=== PATIENT | male | born 1960 | race Caucasian/White ===

== ENCOUNTER 2017-08-11 18:01 | Inpatient (IN) | payer OTHER ==
[~2017-08-11] VITALS: Ht 182.9 cm; Wt 90.7 kg
--- NOTE | ~2017-08-11 | HC ---
[facility] [place] [address] CONSULTATION Name: JAYASHREE AMADOR JR Room #: 434-P [facility] IN .R.#: [id number] Admission: 08/11/17 Attend Phys: Frederick Velazquez MD Discharge: 08/13/17 Date of : 56 Report #: [id number] THIS REPORT FOR: //name// CC: Frederick Taylor MD DATE OF SERVICE: 08/12/2017 HISTORY OF PRESENT ILLNESS: The patient is a 56-year-old male with a history of ulcerative colitis, reportedly diagnosed in 1999. He is followed by Dr. Nirmal Taylor. He takes Lialda on a daily basis. Began on Tuesday, having generalized aches and pains, chills, no fevers. He does have nausea, but this is chronic. He has a history of gastroparesis. He denies any emesis. His weight has been fairly stable. He denies any significant diarrhea, or blood in the stools, but he has noticed increased mucus. He was complaining of chest pain, back pain, abdominal pain, was seen by his primary physician last week. He tested negative for the flu, but was treated prophylactically with Tamiflu. Because of his ongoing symptoms, he went to the Emergency Room for further evaluation. A CT scan of his abdomen and pelvis were performed yesterday, which showed mild circumferential mural thickening involving the descending and sigmoid colon with scattered colonic diverticulosis, no evidence of diverticulitis. This could possibly represent mild descending and sigmoid colitis. The patient's last colonoscopy was in [address] Jaden Alvarez in which left-sided diverticulosis was noted, but no active ulcerative colitis. He has been started on antibiotics empirically. He denies any shortness of breath at this time. PAST MEDICAL HISTORY: Ulcerative colitis diagnosed in 1999, history of gastroesophageal reflux disease, gastroparesis, sleep apnea, asthma, hypertension, coronary artery disease status post CABG, secondary polycythemia, diverticulosis, history of renal stone. MEDICATIONS ON ADMISSION: Aciphex, Lialda, he is taking 2 per day, Zantac, Zithromax, Valtrex, Flonase, Cymbalta, Jennifer, Toprol, alprazolam, fentanyl patch, Ashford p.r.n., Bentyl, Soma, Ambien, Tigan, Zocor, Zegerid, Spiriva, Singulair, testosterone, Diflucan, Advair. ALLERGIES: ELAVIL, NEURONTIN, REGLAN, COMPAZINE, LYRICA. REVIEW OF SYSTEMS: As per HPI. FAMILY HISTORY: Negative for colon cancer. SOCIAL HISTORY: Quit smoking approximately a year ago. Denies any alcohol use. [address] [address] CONSULTATION Name: JAYASHREE AMADOR Room #: 434-P [facility] IN M.R.#: [id number] Admission: 08/11/17 Attend Phys: Frederick Velazquez MD Discharge: 08/13/17 Date of : 56 Report #: [id number] PHYSICAL EXAMINATION: VITAL SIGNS: Temperature is 98.0, pulse 83, blood pressure 145/95, respiratory rate is 18. GENERAL: He is alert and oriented x 3 in no acute distress. HEENT: Sclerae nonicteric. Oropharynx clear. NECK: Supple, without lymphadenopathy. CARDIOVASCULAR: Regular rate and rhythm. CHEST: Clear to auscultation bilaterally. ABDOMEN: Soft. He is mildly tender diffusely. Nondistended. Normoactive bowel sounds. EXTREMITIES: No cyanosis, clubbing or edema. LABORATORY DATA: Sodium 140, potassium 3.3, chloride 102, bicarbonate 30, BUN 10, creatinine 1.0, glucose 93, AST 33, lipase 48, total bilirubin 0.9, calcium 8.0, alkaline phosphatase 98, ALT is 65, albumin 3.9. WBC is 5.9, hemoglobin 17.6, platelet count is 150. ASSESSMENT: Chest pain, abdominal pain, back pain, nausea. The patient has a history of ulcerative colitis. CT scan shows possible thickening in the descending and sigmoid colon. He also has diverticulosis. Plan is for flexible sigmoidoscopy for further evaluation to rule out the possibility of ulcerative colitis flare. Because of his chest pain, nausea, we also discussed proceeding with an upper endoscopy for further evaluation today as well. His white count is normal. Labs are essentially normal. I agree with empiric antibiotic treatment, which has already been started. We will make further recommendations after endoscopy. Thank you for allowing me to participate in his care. <ELECTRONICALLY SIGNED> By: Alexy Gillespie MD 08/17/17 0914 1057 1822 Alexy Gillespie MD /nt
--- NOTE | ~2017-08-11 | P ---
[facility] [place] [address] PROCEDURE REPORT Name: JAYASHREE AMADOR JR Room #: 434-P [facility] IN M.R.#: [id number] Admission: 08/11/17 Attend Phys: Frederick Velazquez MD Discharge: Date of : 56 Report #: [id number] THIS REPORT FOR: //name// CC: Frederick Taylor MD DATE OF SERVICE: 08/12/2017 PROCEDURE PERFORMED: Flexible sigmoidoscopy with biopsies. HISTORY OF PRESENT ILLNESS: The patient is a 56-year-old male with a history of abdominal pain, chest pain, back pain, feeling poor and general chills. No fevers. Initially thought he had flu-like symptoms, took Tamiflu for several days last week. Upper endoscopy was just performed, which showed mild gastritis. The patient is already on b.i.d. PPI therapy and Zantac. History of ulcerative colitis, originally diagnosed in 1999. He is followed by Dr. Nirmal Taylor. He has been on Lialda. He had a colonoscopy by Dr. Jaden Alvarez in 2016, which showed diverticulosis, but otherwise negative. His white count is normal at this time. He underwent a CT scan of the abdomen and pelvis on admission yesterday, which showed findings suggesting mild descending and sigmoid colitis. Colonic diverticulosis is noted, but does not appear consistent with diverticulitis. Plan is for flexible sigmoidoscopy. DESCRIPTION OF PROCEDURE: The risks and benefits of the procedure were explained to the patient, those risks including but not limited to bleeding, perforation, the risk of sedation. He understood these risks and gave informed consent. Sedation was given using propofol and ketamine per Anesthesia. Next, a digital rectal exam was initially performed, which was normal. Next, using a standard Fujinon colonoscope, the scope was placed in the patient's anus and advanced under direct vision to the transverse colon, at which point, the prep was fairly poor in this area. The scope was then slowly withdrawn. Multiple washings and aspirations were performed. The prep in the left colon was actually good. Multiple diverticula noted in the descending and sigmoid colon, no evidence of inflammation, no evidence of colitis. The mucosa was normal throughout. There was no erythema, no bleeding. Random biopsies in the left colon were obtained to rule out microscopic colitis. The rectal mucosa was normal. On retroflexion, small nonbleeding internal hemorrhoids were noted. The scope was then withdrawn and the procedure terminated. The patient tolerated the procedure well. IMPRESSION: 1. Left-sided diverticulosis, no obvious diverticulitis. 2. No evidence of colitis on exam today. RECOMMENDATIONS: [address] [address] PROCEDURE REPORT Name: JAYASHREE AMADOR Room #: 434-P [facility]..#: [id number] Admission: 08/11/17 Attend Phys: Frederick Velazquez MD Discharge: Date of : 56 Report #: [id number] 1. Await biopsy results. 2. Continue antibiotics at this time as well as the patient's mesalamine. Thank you for allowing me to participate in his care. <ELECTRONICALLY SIGNED> By: Alexy Gillespie MD 08/12/17 1418 1050 1157 Alexy Gillespie MD /nt
--- NOTE | ~2017-08-11 | P ---
[facility] [place] [address] PROCEDURE REPORT Name: JAYASHREE AMADOR JR Room #: 434-P [facility] IN .R.#: [id number] Admission: 08/11/17 Attend Phys: Frederick Velazquez MD Discharge: 08/13/17 Date of : 56 Report #: [id number] THIS REPORT FOR: //name// CC: Frederick Taylor MD DATE OF SERVICE: 08/12/2017 PROCEDURE PERFORMED: Upper endoscopy with biopsies. HISTORY OF PRESENT ILLNESS: The patient is a 56-year-old male with recent chest pain, back pain, abdominal pain, chills. No fevers. He has a history of ulcerative colitis. He does report increased mucus in his stools, but no blood. CT scan showing possible colitis on the left side. He has a history of gastroesophageal reflux disease, gastroparesis. He denies any dysphagia or odynophagia. He is taking Zegerid and Aciphex as well as Zantac, but continues to have chest pain. Cardiac workup has been negative. Plan is for EGD and flexible sigmoidoscopy today. DESCRIPTION OF PROCEDURE: The risks and benefits of the procedure were explained to the patient, those risks including but not limited to bleeding, perforation and the risk of sedation. He understood these risks and gave informed consent. Sedation was given using propofol and ketamine per anesthesia. Next, using a standard SPIRIT Navigationinon upper endoscope, the scope was placed in the patient's mouth and advanced under direct vision through the esophagus, stomach and into the second portion of the duodenum. The esophagus was normal throughout. The GE junction was normal. Overall, in the stomach, there was a diffuse gastritis. No evidence of ulcerations or erosions. No bleeding. Biopsies were obtained to rule out H. pylori. The pylorus was normal and patent. The duodenal bulb, first and second portion were all normal. Biopsies of second portion of the duodenum were also obtained to rule out celiac sprue. The scope was then withdrawn and the procedure terminated. The patient tolerated the procedure well. IMPRESSION: 1. Gastritis. 2. Otherwise, normal upper endoscopy. RECOMMENDATIONS: 1. Await biopsy results. 2. Continue PPI therapy. 3. We will proceed with flexible sigmoidoscopy next today. [address] [address] PROCEDURE REPORT Name: JAYASHREE AMADOR Room #: 434-P [facility] IN M.R.#: [id number] Admission: 08/11/17 Attend Phys: Frederick Velazquez MD Discharge: 08/13/17 Date of : 56 Report #: [id number] Thank you for allowing me to participate in his care. <ELECTRONICALLY SIGNED> By: Alexy Gillespie MD 08/17/17 0914 1025 17 Alexy Gillespie MD /nt
--- NOTE | ~2017-08-11 | S ---
[facility] [place] [address] SURGICAL PATH RPT PROCEDURE Name: JAYASHREE AMADOR Room #: 434-P DIS IN M.R.#: [id number] Admission: 08/11/17 Date of : 56 Discharge: 08/13/17 Report #: [id number] Path Case #: [id number] PATHOLOGY REPORT COLLECTION DATE: 08/12/2017 RECEIVED DATE: 08/12/2017 SUBMITTING PHYS: Dr. Alexy Gillespie OTHER PHYS: Dr. Rafa Cortez SPECIMEN(S) RECEIVED: A.Duodenum B.Gastritis C.Random colon * * * * * * * * * * * * FINAL DIAGNOSIS: A. Small bowel mucosa, duodenum, rule out sprue, endoscopic biopsy: - No diagnostic abnormalities present. B. Gastric mucosa, gastritis, rule out H. pylori, endoscopic biopsy: - Moderate reactive gastropathy. - Negative for intestinal metaplasia or atrophy. - Negative for Helicobacter pylori. C. Large intestinal mucosa, random colon, endoscopic biopsy: - Mild reactive changes, history of ulcerative colitis provided. - Negative for dysplasia or malignancy. (IUV:ramonita; 08/15/2017) COMMENT: Well-controlled Helicobacter pylori immunohistochemical stain performed on block B1 - Negative. Examination shows nonspecific reactive changes. There is no active cryptitis, crypt abscess formation or ulceration present. There are no definitive architectural abnormalities identified within the fragments sampled. The findings are consistent with a quiescent colitis. History of ulcerative colitis diagnosed in 1999 is gathered. There is no dysplasia or malignancy present. (IUV:ramonita; 08/15/2017) PATHOLOGIST: Julienne Perez M.D. REPORT ELECTRONICALLY SIGNED BY: Julienne Perez M.D. DATE/TIME: 08/15/2017 14:45 * * * * * * * * * * * * GROSS PATHOLOGY: A. Received in formalin labeled "Jayashree Amador JR, duodenum, rule [facility] [address] [place] [address] SURGICAL PATH RPT PROCEDURE Name: JAYASHREE AMADOR JR Room #: 434-P [facility] IN [facility].#: [id number] Admission: 08/11/17 Date of : 56 Discharge: 08/13/17 Report #: [id number] Path Case #: [id number] out sprue" and consists of 4 rosario mucosal biopsies each averaging 0.2 cm. They are entirely submitted as A1. B. Received in formalin labeled "Jayashree Amador JR, gastritis, rule out H. pylori" and consists of 2 rosario mucosal biopsies each averaging 0.5 cm. They are entirely submitted as B1. C. Received in formalin labeled "Jayashree Amador JR, random colon BX, history ulcerative colitis" and consists of 2 rosario mucosal biopsies each averaging 0.3 cm. They are entirely submitted as C1. (VIVIANE; 08/12/2017) CLINICAL HISTORY: Chest pain, abdominal pain, nausea, change in stool, history ulcerative colitis, gastritis, diverticulosis INITIAL CPT CODE(S): A; 36891 B; 72178, 22750 C; 91325 Professional services performed by [facility] at [facility] [address], [place] [address] Technical services performed by [facility] at [address] [place] [address], [address], [place] [address]. [facility] [address] [place] [address] PHONE: [phone] DIRECTOR: Yeyo Chnaey M.D. * * * END OF REPORT * * *
--- NOTE | ~2017-08-11 | EKG ---
[place] [address] [facility] [place] [address] ELECTROCARDIOGRAM REPORT Name: JAYASHREE AMADOR Room #: 445-P ADM IN M.R.#: [id number] Admission: 08/11/17 Attend Phys: Frederick Velazquez MD Discharge: Date of : 56 Report #: [id number] THIS REPORT FOR: //name// [facility] ED Test Date: 2017-08-11 Test Time: 20:36:56 Pat Name: JAYASHREE AMADOR Department: Room: [facility] Gender: M Supervisor Dry Cell Assembly: JORJE : 1960 Requested By: Carlo Camargo Order Number: [id number] MD: Jack Salinas Measurements Intervals [place] Rate: 84 P: 55 MT: 155 QRS: -28 QRSD: 84 T: 110 QT: 359 QTc: 425 Interpretive Statements Sinus rhythm Left atrial enlargement Inferior infarct, old Poor R wave progression No previous ECG available for comparison Electronically Signed On 08-12-2017 8:15:52 METABOLIC SPECIALIST by Jack Salinas [email or web address] <ELECTRONICALLY SIGNED> By: Jack Salinas MD, [facility] 08/12/17 0815 2036 35 Jack Salinas MD, FACC /EPI
--- NOTE | ~2017-08-11 | EKG ---
[place] [address] [facility] [place] [address] ELECTROCARDIOGRAM REPORT Name: JAYASHREE AAMDOR Room #: 445-P ADM IN M.R.#: [id number] Admission: 08/11/17 Attend Phys: Frederick Velazquez MD Discharge: Date of : 56 Report #: [id number] THIS REPORT FOR: //name// [facility] ED Test Date: 2017-08-11 Test Time: 18:08:18 Pat Name: JAYASHREE AMADOR Department: Room: [facility] Gender: M Creative Strategist: MINERVA : 1960 Requested By: Carlo Camargo Order Number: [id number] MD: Jack Sailnas Measurements Intervals [place] Rate: 88 P: 60 [place]: 158 QRS: -21 QRSD: 80 T: 105 QT: 350 QTc: 424 Interpretive Statements Sinus rhythm Left atrial enlargement Inferior infarct, old Poor R wave progression No previous ECG available for comparison Electronically Signed On 08-12-2017 8:14:11 TONAL REGULATOR by Jack Salinas [email or web address] <ELECTRONICALLY SIGNED> By: Jack Salinas MD, [facility] 08/12/17 0814 1808 07 Jack Salinas MD, FACC /EPI
[~2017-08-11 18:01] MED LIST: ACIPHEX 20 MG T20 MG PO; ADVAIR HFA 45MC1 AER INH; ALLEGRA-D 24 H1 EACH PO; ALPRAZOLAM XR1 MG PO; AMBIEN CR12.5 MG PO; BENTYL 20 MG TA20 M1 PO; CIALIS5 MG PO; CIPRO250 M2 PO; CYMBALTA60 MG PO; DIFLUCAN200 MG PO; FENTANYL 1100 MCG/HR TRANSDERM; FLAGYL500 MG PO; FLOMAX0.4 MG PO; FLONASE 0.05%50 MCG NASAL; LIALDA1.2 GM PO; NORCO 5-325 TA1 EAC1 PO; SINGULAIR 10 MG10 M1 PO; SOMA COMPOUND PO; SPIRIVA INH; TESTOSTERO200 MG/11 IM; TIGAN300 MG PO; TOPROL XL100 MG PO; VALTREX1000 MG PO; ZANTAC 150MG T150 MG PO; ZEGERID 40 MG1 EACH PO; ZITHROMAX250 MG PO; ZOCOR 20 MG TAB20 M1 PO
[2017-08-11 18:11] VITALS: BP 150/104
[2017-08-11 18:25] LABS: ABSOLUTE NEUTROPHILS 4.1 thou/uL (1.4-8.2); BASOPHILS 0.2 % (0.0-2.0); EOSINOPHILS 0.5 % (0.0-3.0); HEMATOCRIT 57.6 % (42.0-52.0); LYMPHOCYTES 22.8 % (24.0-44.0); MCH 31.7 pg (26.0-34.0); MCHC 34.8 g/dL (28.0-37.0); MCV 91.3 fL (80.0-100.0); MONOCYTES 7.2 % (1.0-8.0); PLATELET COUNT 145 thou/uL (150-400); POLYS 69.3 % (36.0-66.0); RBC 6.31 mil/uL (4.50-6.00); RDW 15.7 % (10.5-14.5); WBC 5.9 thou/uL (4.0-11.0)
[2017-08-11 18:34] LABS: ANION GAP 7 mmol/L (7-16); BUN 11 mg/dL (7-18); CALCIUM 9.1 mg/dL (8.5-10.1); CHLORIDE 101 mmol/L (98-107); CO2 29 mmol/L (21-32); CREATININE 1.2 mg/dL (0.7-1.3); GLUCOSE 131 mg/dL (74-106); POTASSIUM 3.7 mmol/L (3.5-5.1); SODIUM 137 mmol/L (136-145)
[2017-08-11 18:42] LABS: ALBUMIN 3.9 g/dL (3.4-5.0); SGOT 33 U/L (15-37); SGPT 65 U/L (30-65); TOTAL BILIRUBIN 0.9 mg/dL (<0.1-1.0); TOTAL PROTEIN 6.8 g/dL (6.4-8.2); TROPONIN-I < 0.04 ng/mL (<0.06)
[2017-08-11] MEDS ORDERED: ACIPHEX 20 MG T20 MG PO (18:46)
[2017-08-11] MEDS ORDERED: ADVAIR 500-501 EACH INH (18:48)
[2017-08-11] MEDS ORDERED: CARISOPRODOL 3350 MG PO (18:51)
[2017-08-11] MEDS ORDERED: ZEGERID 20 MG1 EACH PO (18:52)
[2017-08-11] MEDS ORDERED: SPIRIVA INH (18:54)
[2017-08-11 20:57] VITALS: BP 128/76
[2017-08-11 21:24] VITALS: BP 136/87
[2017-08-11 22:00] LABS: BE(vivo) 1.4 mmol/L (-2 to +3); PCO2 40.9 mmHg (35.0-45.0); PO2 73.8 mmHg (80.0-100.0); pH 7.421 (7.360-7.450); sO2 95.1 % (92.0-98.0)
[2017-08-12 04:07] VITALS: BP 121/80
[2017-08-12 05:24] LABS: HEMATOCRIT 50.9 % (42.0-52.0); MCH 31.7 pg (26.0-34.0); MCHC 34.5 g/dL (28.0-37.0); MCV 91.9 fL (80.0-100.0); RBC 5.53 mil/uL (4.50-6.00); WBC 5.9 thou/uL (4.0-11.0)
[2017-08-12 05:28] LABS: HEMOGLOBIN 17.6 gm/dL (14.0-18.0)
[2017-08-12 05:30] LABS: POTASSIUM 3.3 mmol/L (3.5-5.1)
[2017-08-12 08:00] VITALS: BP 145/95
[2017-08-12 16:00] VITALS: BP 146/96
[2017-08-12 19:28] VITALS: BP 150/100
[2017-08-13 03:59] VITALS: BP 129/89
[2017-08-13 08:39] VITALS: BP 134/91
[2017-08-13] MEDS ORDERED: CIPRO500 MG PO (10:01)
[2017-08-13] MEDS ORDERED: FLAGYL500 MG PO (10:02)
[2017-08-13 10:22] VITALS: BP 134/91
== END 2017-08-13 11:00 | disposition home or self-care (01) | DRG 392 ==
LOC: ER 18:01 → EROBS 20:11 → 4S 20:11
PROVIDERS: Internal Medicine Gastroenterology; Nurse Practitioner Family; Physician Assistant
PROC: 0DB98ZX Excision of Duodenum, Via Natural or Artificial Opening Endoscopic, Diagnostic (ICD-10-PCS; principal; 2017-08-11)
PROC: 0DBE8ZX Excision of Large Intestine, Via Natural or Artificial Opening Endoscopic, Diagnostic (ICD-10-PCS; principal; 2017-08-11)
PROC: 0DB68ZX Excision of Stomach, Via Natural or Artificial Opening Endoscopic, Diagnostic (ICD-10-PCS; principal; 2017-08-11)
DX: K52.9 Noninfective gastroenteritis and colitis, unspecified (principal); K31.84 Gastroparesis; I10 Essential (primary) hypertension; E78.5 Hyperlipidemia, unspecified; M54.9 Dorsalgia, unspecified; J45.909 Unspecified asthma, uncomplicated; K58.9 Irritable bowel syndrome, unspecified; K21.9 Gastro-esophageal reflux disease without esophagitis; I25.10 Atherosclerotic heart disease of native coronary artery without angina pectoris; E78.00 Pure hypercholesterolemia, unspecified; K57.30 Diverticulosis of large intestine without perforation or abscess without bleeding; K64.8 Other hemorrhoids; K29.70 Gastritis, unspecified, without bleeding; G89.4 Chronic pain syndrome; D45 Polycythemia vera; F32.9 Major depressive disorder, single episode, unspecified; F41.9 Anxiety disorder, unspecified; K44.9 Diaphragmatic hernia without obstruction or gangrene; K27.9 Peptic ulcer, site unspecified, unspecified as acute or chronic, without hemorrhage or perforation; G47.33 Obstructive sleep apnea (adult) (pediatric); Z87.442 Personal history of urinary calculi; Z79.899 Other long term (current) drug therapy; Z88.8 Allergy status to other drugs, medicaments and biological substances; Z87.891 Personal history of nicotine dependence; Z95.1 Presence of aortocoronary bypass graft
CPT/HCPCS: 10100; 62110; 62900; 70005

== ENCOUNTER → 2019-01-19 | Outpatient (CLI) | payer OTHER ==
[~2019-01-19] MED LIST changes: +ADVAIR 500-501 EACH INH; +CARISOPRODOL 3350 MG PO; +CIPRO500 MG PO; +ZEGERID 20 MG1 EACH PO
== END ==
LOC: RAD 15:05
DX: J45.40 Moderate persistent asthma, uncomplicated (principal)

== ENCOUNTER → 2019-07-23 | Outpatient (CLI) | payer OTHER | LOC: RAD 11:36 | DX: J45.40 Moderate persistent asthma, uncomplicated (principal) ==

== ENCOUNTER → 2019-11-06 | Outpatient (CLI) | payer OTHER | LOC: SJCVC 10:57 | DX: R94.31 Abnormal electrocardiogram [ECG] [EKG] (principal); I21.29 ST elevation (STEMI) myocardial infarction involving other sites; I25.10 Atherosclerotic heart disease of native coronary artery without angina pectoris; I10 Essential (primary) hypertension; E78.00 Pure hypercholesterolemia, unspecified; E11.9 Type 2 diabetes mellitus without complications; D45 Polycythemia vera ==

== ENCOUNTER 2020-02-27 14:24 | Inpatient (IN) | payer OTHER ==
[~2020-02-27] VITALS: Ht 182.9 cm; Wt 79.4 kg
[~2020-02-27 14:24] MED LIST changes: -CIPRO500 M1 PO; -JARDIANCE25 MG; -JARDIANCE25 MG PO
[2020-02-27 14:32] VITALS: BP 118/82
[2020-02-27 14:56] LABS: ABSOLUTE NEUTROPHILS 3.5 thou/uL (1.4-8.2); BASOPHILS 0.4 % (0.0-2.0); HEMATOCRIT 53.8 % (42.0-52.0); HEMOGLOBIN 17.7 gm/dL (14.0-18.0); LYMPHOCYTES 27.5 % (24.0-44.0); MCH 30.5 pg (26.0-34.0); MCHC 32.8 g/dL (28.0-37.0); MCV 92.8 fL (80.0-100.0); PLATELET COUNT 135 thou/uL (150-400); POLYS 62.1 % (36.0-66.0); RDW 15.4 % (10.5-14.5); WBC 5.6 thou/uL (4.0-11.0)
[2020-02-27 15:09] LABS: CALCIUM 9.5 mg/dL (8.5-10.1); POTASSIUM 4.1 mmol/L (3.5-5.1)
[2020-02-27 15:16] LABS: ALBUMIN 4.1 g/dL (3.4-5.0); TOTAL BILIRUBIN 0.6 mg/dL (0.2-1.0); TOTAL PROTEIN 7.3 g/dL (6.4-8.2)
[2020-02-27 16:51] LABS: URINE BILIRUBIN NEGATIVE (Negative); URINE BLOOD NEGATIVE (Negative); URINE CLARITY CLEAR; URINE COLOR YELLOW; URINE GLUCOSE-RANDOM* 3+ (Negative); URINE KETONES NEGATIVE (Negative); URINE LEUKOCYTES-REFLEX NEGATIVE (Negative); URINE NITRITE-REFLEX NEGATIVE (Negative); URINE PROTEIN (DIPSTICK) NEGATIVE (Negative); URINE SPECIFIC GRAVITY 1.015 (1.005-1.035); URINE UROBILINOGEN 0.2 E.U./dl (0.2-1.0)
[2020-02-27 18:05] VITALS: BP 117/83
[2020-02-27 18:46] VITALS: BP 117/83
[2020-02-27 19:07] LABS: FOLIC ACID 29.4 ng/mL (8.6-58.9)
--- NOTE | 2020-02-27 19:12 | NUR ---
Report received from ED at 1820. Report given to Night RN kvng Trivedi still still not here during shift change.
[2020-02-27 19:15] VITALS: BP 138/83
[2020-02-27] MEDS ORDERED: JARDIANCE25 MG PO (20:33)
[2020-02-27] MEDS ORDERED: JARDIANCE25 MG (20:35)
--- NOTE | 2020-02-28 01:54 | NUR ---
ADMITTED TO THE UNIT AT 1900. PT IS A/O X4 AND UP AD PAMELLA. PT C/O PAIN TO LOWER LEFT QUADRANT OF HIS ABDOMEN RANGING FROM A 5-9 ON A 1-10 SCALE. C/O INSOMNIA. NOTIFIED EQUIPMENT SCHEDULER. ORDERS GIVEN. AT THIS TIME, PT IS LYING DOWN IN HIS BED AND APPEARS TO BE SLEEPING. WILL CONTINUE TO MONITOR. CALL LIGHT IS WITHIN REACH. ADMISSION COMPLETED.
[2020-02-28 06:46] LABS: CALCIUM 8.4 mg/dL (8.5-10.1); MAGNESIUM 1.9 mg/dL (1.8-2.4); POTASSIUM 3.6 mmol/L (3.5-5.1)
[2020-02-28 07:10] VITALS: BP 121/79
[2020-02-28 10:43] LABS: ABSOLUTE NEUTROPHILS 2.8 thou/uL (1.4-8.2); BASOPHILS 0.4 % (0.0-2.0); EOSINOPHILS 0.9 % (0.0-3.0); HEMATOCRIT 48.6 % (42.0-52.0); HEMOGLOBIN 16.1 gm/dL (14.0-18.0); LYMPHOCYTES 33.8 % (24.0-44.0); MCH 30.7 pg (26.0-34.0); MCHC 33.1 g/dL (28.0-37.0); MCV 92.6 fL (80.0-100.0); MONOCYTES 9.5 % (1.0-8.0); PLATELET COUNT 126 thou/uL (150-400); POLYS 55.4 % (36.0-66.0); RBC 5.25 mil/uL (4.50-6.00); RDW 15.4 % (10.5-14.5)
[2020-02-28 15:15] VITALS: BP 155/94
--- NOTE | 2020-02-28 15:57 | NUR ---
INITIAL ASSESSMENT: SW reviewed chart. Pt was admitted from home due to intractable abdominal pain. GI consulted. Pt is on IV abx. Pt may have flex-sig tomorrow. SW met with pt at bedside. Introduced role of SW. Pt is alert/orientated x 4. Pt reports he lives at home with his s/o and his father. Prior to admission, pt was independent with ADLs. Pt does have a cane to assist with ambulation as needed. Pt has a long stair case at home, which he is able to navigate with his cane. Pt reports he has had multiple back/neck surgeries. No hx of services. Pt has done outpatient therapy in the past. Pt's PCP is Dr. Camelia Hughes. Plan is for pt to discharge home when medically stable. SW is following to assist as needed with discharge planning.
--- NOTE | 2020-02-28 16:50 | NUR ---
PT A&OX4, VSS, PAIN IN LLQ OF ABDOMEN. FAMILY MEMBER AT BEDSIDE. PAIN MEDICATION GIVEN. COVID TEST SENT TO LAB. NO SIGNS OF DISTRESS. WILL CONTINUE TO MONITOR.
--- NOTE | 2020-02-28 19:30 | NUR ---
ASSUMED CARE OF THE PATIENT AT 0715, PATIENT C/O PAIN WITH ABDOMEN AREA. PATIENT RECEIVED HYDROMORPHONE 0.5 MG IV Q3HRS. PATIENT HAS LEFT AC IV IN PLACE WITH NS 75CC/HR. CIPRO ANTIBIOTIC ORDERED. DR AGUILAR SAW THE PATIENT TODAY. REPORT GIVEN TO VJ/RN WHO WILL ASSUME CARE OF THIS PATIENT.
[2020-02-28 20:01] VITALS: BP 127/78
--- NOTE | 2020-02-29 03:12 | NUR ---
patient has been npo since midnight. patient denied pain or discomfort. patient ambulates to the bathroom with steady gaits. patient in bed asleep at this time breathing regular and unlaboured.
[2020-02-29 07:12] VITALS: BP 134/90
--- NOTE | 2020-02-29 07:58 | NUR ---
ENEMA GIVEN X2, PT NPO IN PREPARATION FOR PROCEDURE.
[2020-02-29 08:41] VITALS: BP 143/99
[2020-02-29] MEDS ORDERED: FLOMAX0.4 MG PO (10:21)
--- NOTE | 2020-02-29 12:14 | NUR ---
PT A&OX4, VSS, PAIN IN ABOMEN. PAIN MEDICAION GIVEN. PATIENT COMPLETED PROCEDURE TODAY. NO SIGNS OF DISTRESS, WILL CONTINUE TO MONITOR.
[2020-02-29 13:16] VITALS: BP 136/100
[2020-02-29] MEDS ORDERED: CIPRO500 M1 PO (13:23)
[2020-02-29 13:42] VITALS: BP 136/100
--- NOTE | 2020-02-29 14:07 | NUR ---
CARE TEAM INDICATED THAT PT IS MEDICALLY STABLE TO DC HOME THIS DAY. PT IS TO DC HOME TO SELF CARE. PT'S FAMILY TO PROVIDE TRANSPORT. NO CM INTERVENTION INDICATED. CASE CLOSED.
[2020-02-29 14:34] VITALS: BP 141/92
--- NOTE | 2020-03-03 15:07 | PATH ---
[facility] [address] [place] [address] PATHOLOGY RPT PROCEDURE Name: PERRYJAYASHREE HERNANDEZ Room #: 458-P DIS IN M.R.#: [id number] Admission: 02/27/20 Date of : 56 Discharge: 02/29/20 Report #: [id number] Path Case #: [id number] [facility] Accession Number: [id number] . 01 Material submitted: . rectosigmoid junction - RANDOM RECTO-SIGMOID BX . 01 Clinician provided ICD-10: K52.9 . 01 Clinical history: . HX OF ULCERATIVE COLITIS, R/O INFECTIOUS COLITIS . 02 Diagnosis: Large intestinal mucosa, random rectosigmoid, endoscopic biopsy: - Mild chronic colitis with regenerative/reactive changes, history of ulcerative colitis. - Negative for dysplasia or malignancy. LBQ 03/03/2020 1306 Local . 02 Comment: Examination shows mild focal active cryptitis with surface ulceration as well as an expanded lamina propria showing lymphocytes, plasma cells as well as numerous macrophages. Features are compatible with the provided history of ulcerative colitis associated with reactive/regenerative changes. Definitive features to support infectious colitis are not identified. Please correlate clinically. (IUV/db; 03/03/2020) . 02 Electronically signed: . Julienne Perez MD, Pathologist NPI- [id number] . 01 Gross description: . Received in formalin labeled "Perry Chapman, Jayashree, random rectosigmoid BX rule out infectious colitis" are multiple rosario-brown soft tissue fragments measuring in aggregate 1.3 x 0.6 x 0.1 cm. The specimen is submitted entirely in A1. [place]02[place] [facility] 03/02/2020 1233 Local . 02 Pathologist provided ICD-10: K52.9 . 02 CPT . 132848 Specimen Comment: A courtesy copy of this report has been sent to [phone] 851-[address], [place] [address] PATHOLOGY RPT PROCEDURE Name: JAYASHREE AMADOR MARY Room #: 458-P DIS IN M.R.#: [id number] Admission: 02/27/20 Date of : 56 Discharge: 02/29/20 Report #: [id number] Path Case #: [id number] Specimen Comment: [id number], Specimen Comment: Report sent to ,DR IBARRA / DR AGUILAR Performed at: [address] [facility] [address], [place], [place] [id number] MD Jak Cid MD Phone: [phone] Performed at: [address] [facility] [id number] MD Julienne Perez MD Phone: [phone]
== END 2020-02-29 15:18 | disposition home or self-care (01) | DRG 392 ==
LOC: ER 14:24 → 4W 17:45 → EROBS 17:45 → 4W 19:15
PROVIDERS: Nurse Practitioner; Physician Assistant; ADMIT Internal Medicine; ATTEND Internal Medicine
PROC: 0DBN8ZX Excision of Sigmoid Colon, Via Natural or Artificial Opening Endoscopic, Diagnostic (ICD-10-PCS; principal; 2020-02-29)
DX: K52.9 Noninfective gastroenteritis and colitis, unspecified (principal); K51.50 Left sided colitis without complications; G89.4 Chronic pain syndrome; I10 Essential (primary) hypertension; M54.9 Dorsalgia, unspecified; E78.5 Hyperlipidemia, unspecified; G47.30 Sleep apnea, unspecified; K57.30 Diverticulosis of large intestine without perforation or abscess without bleeding; K21.9 Gastro-esophageal reflux disease without esophagitis; E11.43 Type 2 diabetes mellitus with diabetic autonomic (poly)neuropathy; K31.84 Gastroparesis; F41.9 Anxiety disorder, unspecified; J45.909 Unspecified asthma, uncomplicated; I25.10 Atherosclerotic heart disease of native coronary artery without angina pectoris; G47.33 Obstructive sleep apnea (adult) (pediatric); K63.89 Other specified diseases of intestine; K57.90 Diverticulosis of intestine, part unspecified, without perforation or abscess without bleeding; Z20.828 Contact with and (suspected) exposure to other viral communicable diseases; Z79.899 Other long term (current) drug therapy; Z88.1 Allergy status to other antibiotic agents; Z88.8 Allergy status to other drugs, medicaments and biological substances; Z87.891 Personal history of nicotine dependence; Z95.1 Presence of aortocoronary bypass graft; Z99.81 Dependence on supplemental oxygen; Z87.11 Personal history of peptic ulcer disease
CPT/HCPCS: 10040; 62110; 62900; 70005

== ENCOUNTER → 2020-02-27 | Outpatient (CLI) | payer OTHER ==
[~2020-02-27] MED LIST changes: +CIPRO500 M1 PO; +JARDIANCE25 MG; +JARDIANCE25 MG PO
== END ==
LOC: SJCVCIMAG 09:33
PROVIDERS: ATTEND Internal Medicine Cardiovascular Disease
DX: M79.604 Pain in right leg (principal); I73.9 Peripheral vascular disease, unspecified; M79.605 Pain in left leg

== ENCOUNTER → 2020-07-08 | Outpatient (CLI) | payer OTHER ==
[~2020-07-08] MED LIST changes: +CIPRO500 M1 PO; +JARDIANCE25 MG; +JARDIANCE25 MG PO
== END ==
LOC: SJCVC 13:55
PROVIDERS: ATTEND Internal Medicine Cardiovascular Disease
DX: R94.31 Abnormal electrocardiogram [ECG] [EKG] (principal); I25.10 Atherosclerotic heart disease of native coronary artery without angina pectoris; I10 Essential (primary) hypertension; E78.00 Pure hypercholesterolemia, unspecified; E11.9 Type 2 diabetes mellitus without complications; I65.23 Occlusion and stenosis of bilateral carotid arteries; G89.29 Other chronic pain; K21.9 Gastro-esophageal reflux disease without esophagitis; J45.909 Unspecified asthma, uncomplicated; G47.33 Obstructive sleep apnea (adult) (pediatric); Z87.891 Personal history of nicotine dependence; Z79.899 Other long term (current) drug therapy; Z88.6 Allergy status to analgesic agent; Z88.8 Allergy status to other drugs, medicaments and biological substances; Z88.1 Allergy status to other antibiotic agents

== ENCOUNTER 2020-12-20 09:25 | Emergency (ER) | payer OTHER ==
[~2020-12-20] VITALS: Ht 182.9 cm; Wt 76.7 kg
[2020-12-20] MEDS ORDERED: NORCO 10-325 T1 EACH PO (09:41)
[2020-12-20] MEDS ORDERED: METHOCARBAMOL500 M2 PO (09:43)
[2020-12-20] MEDS ORDERED: LIPITOR 40 MG T40 M1 PO (09:44)
[2020-12-20] MEDS ORDERED: AZITHROMYCIN 2250 MG PO (09:44)
[2020-12-20] MEDS ORDERED: EZETIMIBE10 MG PO (09:45)
[2020-12-20] MEDS ORDERED: METHOCARBAMOL750 MG PO (09:45)
[2020-12-20] MEDS ORDERED: TADALAFIL5 M1 PO (09:46)
[2020-12-20] MEDS ORDERED: SPIRIVA18 MCG INH (09:47)
[2020-12-20] MEDS ORDERED: PROVIGIL 200 M200 MG PO (09:48)
[2020-12-20 09:55] LABS: ABSOLUTE NEUTROPHILS 3.5 thou/uL (1.4-8.2); BASOPHILS 0.4 % (0.0-2.0); EOSINOPHILS 0.7 % (0.0-3.0); HEMATOCRIT 53.8 % (42.0-52.0); HEMOGLOBIN 17.7 gm/dL (14.0-18.0); LYMPHOCYTES 28.7 % (24.0-44.0); MCH 32.8 pg (26.0-34.0); MCHC 32.8 g/dL (28.0-37.0); MONOCYTES 9.9 % (1.0-8.0); PLATELET COUNT 129 thou/uL (150-400); POLYS 60.3 % (36.0-66.0); RBC 5.38 mil/uL (4.50-6.00); RDW 15.6 % (10.5-14.5); WBC 5.9 thou/uL (4.0-11.0)
[2020-12-20 10:04] LABS: ANION GAP 9 mmol/L (7-16); BUN 19 mg/dL (7-18); CALCIUM 9.5 mg/dL (8.5-10.1); CHLORIDE 100 mmol/L (98-107); CO2 33 mmol/L (21-32); CREATININE 1.3 mg/dL (0.7-1.3); GLUCOSE 107 mg/dL (74-106); POTASSIUM 4.5 mmol/L (3.5-5.1); SODIUM 142 mmol/L (136-145)
[2020-12-20 10:15] LABS: ALBUMIN 3.6 g/dL (3.4-5.0); LIPASE 82 U/L (73-393); SGOT 24 U/L (15-37); SGPT 38 U/L (16-63); TOTAL BILIRUBIN 0.6 mg/dL (0.2-1.0); TOTAL PROTEIN 6.5 g/dL (6.4-8.2); TROPONIN-I <0.06 ng/mL (<0.06)
--- NOTE | 2020-12-20 10:59 | EKG ---
[place] [address] [facility] [place] [address] ELECTROCARDIOGRAM REPORT Name: JAYASHREE AMADOR [id number] Admission: 12/20/20 Attend Phys: Discharge: Date of : 56 Report #: [id number] [facility] ED Test Date: 2020-12-20 Test Time: 09:30:58 Pat Name: JAYASHREE AMADOR Department: Room: Gender: M Qualitative Researcher: ian : 1960 Requested By: Sin Cordoba Order Number: [id number] MD: Beau Jones Measurements Intervals [place] Rate: 64 P: 61 [place]: 164 QRS: -30 QRSD: 82 T: 85 QT: 395 QTc: 408 Interpretive Statements Sinus rhythm Probable left atrial abnormality Inferior infarct, old Anterior infarct, old Baseline wander in lead(s) V1,V3 Compared to ECG 08/11/2017 20:36:56 Myocardial infarct finding still present Electronically Signed On 12-20-2020 10:59:48 CDT by Beau Jones [email or web address] <ELECTRONICALLY SIGNED> By: Beau Jones MD 12/20/20 1059 0930 0930 MD MATTHEW Yi
[2020-12-20 11:29] VITALS: BP 112/67
== END 2020-12-20 11:29 | disposition home or self-care (01) ==
LOC: ER 09:25
PROVIDERS: Emergency Medicine
DX: R07.89 Other chest pain (principal); R10.9 Unspecified abdominal pain; R06.02 Shortness of breath; R19.7 Diarrhea, unspecified; J45.909 Unspecified asthma, uncomplicated; K21.9 Gastro-esophageal reflux disease without esophagitis; I10 Essential (primary) hypertension; G89.29 Other chronic pain; F17.210 Nicotine dependence, cigarettes, uncomplicated; Z98.890 Other specified postprocedural states; Z88.8 Allergy status to other drugs, medicaments and biological substances